=== PATIENT | male | born 1945 | race Caucasian/White ===

== ENCOUNTER 2020-05-29 07:32 | Day surgery (SDC) | payer MEDICARE, BC ==
[2020-05-21 11:49] LABS: CLARITY,URINE CLEAR (Clear); COLOR,URINE YELLOW (Yellow); GLUCOSE, URINE NEGATIVE (Neg); KETONES,URINE NEGATIVE (Neg); LEUKOCYTE ESTERASE ,URINE TRACE (Neg); NITRITES, URINE NEGATIVE (Neg); OCCULT BLOOD,URINE NEGATIVE (Neg); PH,URINE 5.5 (4.8-8.0); PROTEIN,URINE NEGATIVE (Neg); UROBILINOGEN,URINE 0.2 E.U/dL (0.2-1.0)
[2020-05-21 11:50] LABS: UA COLLECTION TYPE CLN CATCH MIDSTREAM
[2020-05-21 11:52] LABS: BASOPHILS % (AUTO) 0.4 % (0-1); EOSINOPHILS # (AUTO) 0.1 X10'3 (0-0.9); EOSINOPHILS % (AUTO) 0.8 % (0-6); LYMPHOCYTES # (AUTO) 1.8 X10'3 (1.1-4.8); LYMPHOCYTES % (AUTO) 16.1 % (21-51); MEAN CORPUSCULAR HGB CONC 34.1 g/dL (33.0-36.5); MEAN CORPUSCULAR VOLUME 99.9 FL (78-98); MEAN PLATELET VOLUME 8.5 FL (7.4-10.4); MONOCYTES # (AUTO) 0.9 X10'3 (0-0.9); MONOCYTES % (AUTO) 7.9 % (2-12); NEUTROPHILS # (AUTO) 8.6 X10'3 (1.8-7.7); NEUTROPHILS % (AUTO) 74.8 % (42-75); PRE OP HEMATOCRIT 43.5 % (42.0-52.0); PRE OP HEMOGLOBIN 14.8 g/dL (14.0-17.9); PRE OP PLATELET COUNT 217 X10'3 (140-440); RED BLOOD COUNT 4.36 X10'6 (4.70-6.10); RED CELL DISTRIBUTION WIDTH 13.9 % (11.5-14.5)
[2020-05-21 12:01] LABS: BACTERIA,URINE NONE SEEN /HPF (Neg); RBC,URINE NONE SEEN /HPF (0-2); SQUAMOUS EPITHELIAL CELL,UR FEW /LPF (FEW); WBC,URINE 0-4 /HPF (0-4)
[2020-05-21 12:02] LABS: ALBUMIN 4.3 G/DL (3.4-5.0); ALBUMIN/GLOBULIN RATIO 1.3 (1.1-1.5); ALKALINE PHOSPHATASE 70 IU/L (46-116); BLOOD UREA NITROGEN 18 MG/DL (7-18); BUN/CREATININE RATIO 19.1 (5.4-32.0); CALCIUM 9.4 MG/DL (8.5-10.1); CHLORIDE 104 MMOL/L (99-107); CREATININE 0.94 MG/DL (0.60-1.10); PRE OP ALT 34 U/L (30-65); PRE OP ANION GAP 9 (8-16); PRE OP AST 20 U/L (10-37); PRE OP BILIRUB, TOTAL 0.6 MG/DL (0.0-1.0); PRE OP GLUCOSE 113 MG/DL (70-104); PRE OP POTASSIUM 4.1 MMOL/L (3.4-5.1); PRE OP SODIUM 142 MMOL/L (135-145); TOTAL CARBON DIOXIDE 28.7 MMOL/L (24-32); TOTAL PROTEIN 7.6 G/DL (6.4-8.2); eGFR 79 ML/MIN
[~2020-05-29] VITALS: Ht 182.9 cm; Wt 102.7 kg
[2020-05-29] VITALS (12 sets, daily range): BP systolic 109–130; BP diastolic 59–69
[~2020-05-29 07:32] MED LIST: ACET-812 PO; ALLO100T PO; AREDS 2 PO; ASCO1TAB39 PO; CBD OIL PO; FLO0.4C PO; KYOLIC; LACT1CAP65 PO; LISI-600 PO; MULT-1085 PO; OMEG1CAP13 PO; SOUR1000 PO; TURM500C4 PO; UBID100C16 PO; [UNRECOGNIZED DRUG - OTHER] PO; [UNRECOGNIZED DRUG - OTHER] PO; ceFAZolin 2gm in dextrose, iso 50 ML IV ONE; famotidine 20mg tablet PO ONE; ringers solution, lacted 1,000 ML IV SCH
[2020-05-29] MEDS ORDERED: bacitracin 15gm ointment TP ONE (09:43)
[2020-05-29] MEDS ORDERED: BUPIVAcaine/PF 2.5 mg/ml (0.25%) 30ml vial ONE (09:43)
[2020-05-29] MEDS ORDERED: fentaNYL/PF 50MCG/1 ML 2ML syringe ONE (09:58)
[2020-05-29] MEDS ORDERED: sevoflurane 250ml liquid IH ONE (10:01)
[2020-05-29] MEDS ORDERED: ondansetron/PF 4mg/2ml inj ONE (10:01)
[2020-05-29] MEDS ORDERED: dexamethasone sod phosphate 10mg/ml inj ONE (10:01)
[2020-05-29] MEDS ORDERED: midazolam 2 mg/2 ml injection ONE (11:07)
[2020-05-29] MEDS ORDERED: meperidine/PF 25mg/ml syringe IV PRN ×3 (11:15)
[2020-05-29] MEDS ORDERED: proCHLORperazine 10 MG/2 ml inj IV PRN (11:15)
[2020-05-29] MEDS ORDERED: morphine 4 MG/ML inj SYRINge IV PRN (11:15)
[2020-05-29] MEDS ORDERED: hydrALAZINE 20mg/ml inj. IV PRN (11:15)
[2020-05-29] MEDS ORDERED: morphine 2 MG/ML inj. syringe IV PRN (11:15)
[2020-05-29] MEDS ORDERED: ondansetron/PF 4mg/2ml inj IV PRN (11:15)
[2020-05-29] MEDS ORDERED: ROPIVAcaine 0.2%/PF PUMP/bolus 550 ML POPLITEAL SCH (11:15)
[2020-05-29] MEDS ORDERED: acetaminophen 1,000mg/100ml IV 100 ML IV PRN (11:15)
[2020-05-29] MEDS ORDERED: ROPIVAcaine 0.2% (10 MG/5 ML) BOLUS INJECTION POPLITEAL PRN (11:15)
[2020-05-29] MEDS ORDERED: ringers solution, lacted 1,000 ML IV SCH (11:15)
[2020-05-29] MEDS ORDERED: labetalol 20mg/4ml (5mg/ml) syringe IV PRN (11:15)
[2020-05-29] MEDS ORDERED: LIDOcaine 2% (20mg/ml) 5ml vial ONE (12:53)
[2020-05-29] MEDS ORDERED: propofol inj 20 ML IV ONE ×2 (12:53→12:54)
[2020-05-29] MEDS ORDERED: 0.9 % SODIUM CHLORIDE 10 ML VIAL ONE ×3 (12:54)
[2020-05-29] MEDS ORDERED: ePHEDrine 50MG/ML INJ. ONE (12:54)
[2020-05-29] MEDS ORDERED: ROPIVAcaine 0.5% (5mg/ml) 30ml vial ONE (12:54)
[2020-05-29] MEDS ORDERED: morphine 10mg/ml inj. ONE ×2 (12:58→14:43)
[2020-05-29] MEDS ORDERED: ceFAZolin 1000mg inj ONE (13:02)
--- NOTE | 2020-05-29 15:20 | NUR ---
ADMITTED TO PACU FROM OR ACCOMPANIED BY ANESTHESIA. INTIAL PHYSICAL ASSESSMENT DONE AND RECORDED. REPORT RECEIVED FROM ANESTHESIA.
[2020-05-29] MEDS ORDERED: oxyCODONE/APAP 10/325mg tablet PO ONE (16:10)
--- NOTE | 2020-05-29 17:10 | NUR ---
UP OOB TO CHAIR TAKING PO WITHOUT NAUSEA. IN ROUTE TO HOSPITAL FOR DISCHARGE.
--- NOTE | 2020-05-29 17:20 | NUR ---
DISCHARGE CRITERIA MET, DISCHARGE INSTRUCTIONS GIVEN, DEMONSTRATES VERBAL UNDERSTANDING. DISCHARGED HOME IN GOOD CONDITION. DETAILED INSTRUCTIONS GIVEN RE ON Q PUMP USE AND REMOVAL. DEMONSTRATES UNDERSTANDING.
== END 2020-05-29 17:20 | disposition home or self-care (01) ==
LOC: PRE-OP 07:32 → PAS 17:20
PROVIDERS: ATTEND Podiatrist Foot & Ankle Surgery
DX: M21.41 Flat foot [pes planus] (acquired), right foot (principal); M62.462 Contracture of muscle, left lower leg; M19.071 Primary osteoarthritis, right ankle and foot; M20.21 Hallux rigidus, right foot; M20.11 Hallux valgus (acquired), right foot; M76.821 Posterior tibial tendinitis, right leg; M20.41 Other hammer toe(s) (acquired), right foot; I10 Essential (primary) hypertension; E66.9 Obesity, unspecified; Z68.31 Body mass index [BMI] 31.0-31.9, adult; M10.9 Gout, unspecified; G89.18 Other acute postprocedural pain; N40.0 Benign prostatic hyperplasia without lower urinary tract symptoms; G62.9 Polyneuropathy, unspecified; Z87.891 Personal history of nicotine dependence; Z72.89 Other problems related to lifestyle; Z98.890 Other specified postprocedural states; Z88.2 Allergy status to sulfonamides; Z88.8 Allergy status to other drugs, medicaments and biological substances; Z85.828 Personal history of other malignant neoplasm of skin; Z79.899 Other long term (current) drug therapy; Z90.49 Acquired absence of other specified parts of digestive tract
CPT/HCPCS: 20900; 27687; 28715; 28730; 28750; 28820; 36415; 64446; 64448; 73630; 76000; 76937; 80053; 81001; 82948; 85025; 87088; 87635; A6223; C1713; C1762; C9359; J0131; J0690; J1100; J2001; J2250; J2270; J2405; J2704; J2795; J3010; J3490; J7120; A4618; A6253; A6449; A7000